=== PATIENT | male | born 1950 | race Caucasian/White ===

== ENCOUNTER 2024-10-27 08:38 | Inpatient (IN) | payer MEDICARE, OTHER ==
[~2024-10-27] VITALS: Ht 175.3 cm; Wt 105.0 kg
[2024-10-27] MEDS ORDERED: Lactated Ringer's 1,000 ML IV ONE ×2 (09:10→12:11)
[2024-10-27 09:28] LABS: BASOPHILS ABSOLUTE AUTO 0.02 K/mm3 (0.00-0.23); BASOPHILS PERCENT AUTO 0 % (0-2); EOSINOPHILS ABSOLUTE AUTO 0.04 K/mm3 (0.00-0.68); EOSINOPHILS PERCENT AUTO 0 % (0-6); Hematocrit 45.5 % (37.0-53.0); Hemoglobin 15.8 g/dL (13.5-17.5); IMMATURE GRAN ABSOLUTE AUTO 0.03 K/mm3 (0.00-0.10); IMMATURE GRAN PERCENT AUTO 0 % (0-1); LYMPHOCYTES ABSOLUTE AUTO 1.06 K/mm3 (0.84-5.20); LYMPHOCYTES PERCENT AUTO 11 % (21-46); MONOCYTES ABSOLUTE AUTO 1.05 K/mm3 (0.16-1.47); MONOCYTES PERCENT AUTO 11 % (4-13); Mean Corpuscular HGB 31.7 pg (26.0-34.0); Mean Corpuscular HGB Conc 34.7 g/dL (31.5-36.5); Mean Corpuscular Volume 91 fL (80-100); Mean Platelet Volume 9.7 fL (9.1-12.4); NEUTROPHILS ABSOLUTE AUTO 7.11 K/mm3 (1.96-9.15); NEUTROPHILS PERCENT AUTO 76 % (41-73); Platelet Count 316 K/mm3 (150-400); RDW Coefficient Variation 13.5 % (11.7-14.2); RDW Standard Deviation 45.7 fL (35.1-46.3); Red Blood Cell Count 4.99 M/mm3 (4.30-5.90); White Blood Cell Count 9.31 K/mm3 (4.00-11.30)
[2024-10-27 09:51] LABS: Albumin, Blood 3.2 g/dL (3.4-5.0); Bilirubin, Total 0.7 mg/dL (0.1-1.0); Bun/Creatinine Ratio 12.7 (12.0-20.0); Calcium, Blood 8.9 mg/dL (8.5-10.1); Creatinine, Blood 2.37 mg/dL (0.60-1.20); Globulin, Blood 3.3 g/dL (2.2-4.0); Magnesium, Blood 2.1 mg/dL (1.6-2.4); Potassium, Blood 4.2 mmol/L (3.5-5.5); Total Protein, Blood 6.5 g/dL (6.4-8.2)
[2024-10-27 12:52] LABS: Source, Urine Clean Catch
[2024-10-27] MEDS ORDERED: FLU VACC TS2024-25(6MOS UP)/PF 45 MCG/0.5 ML SYRINGE IM ONE (13:00)
[2024-10-27] MEDS ORDERED: FentaNYL Citrate 50 MCG/ML 2 ML Injection IV PRN ×2 (13:00→17:00)
[2024-10-27] MEDS ORDERED: Acetaminophen 325 MG TABLET PO PRN (13:00)
[2024-10-27] MEDS ORDERED: NS 1,000 ML IV SCH (13:00)
[2024-10-27] MEDS ORDERED: Ondansetron HCl 2 MG / ML 2ML Vial IV PRN (13:00)
[2024-10-27 13:02] LABS: Appearance, Urine Hazy (Clear); Bilirubin, Urine Neg (Neg); Blood, Urine Neg (Neg); Color, Urine Yellow (P-Yellow); Glucose Qualitative, Urine Neg (Neg); Ketones, Urine 1+ (Neg); Leukocyte Esterase, Urine Neg (Neg); Nitrite, Urine Neg (Neg); Protein, Urine 1+ (Neg); Specific Gravity, Urine 1.015 (1.003-1.022); Urobilinogen, Urine NORM (Normal)
[2024-10-27 13:18] LABS: Calcium Oxalate Crystals Many /hpf
[2024-10-27 13:19] LABS: Red Blood Cells, Urine 0-2 /hpf (0-2)
[2024-10-27 13:20] LABS: Bacteria Mod /hpf; Mucus Light (0-Heavy); Squamous Epithelial Cells Rare /hpf (Few)
[2024-10-27 14:27] VITALS: BP 152/70
[2024-10-27 16:04] LABS: Adenovirus F 40/41 Not Detected (NOT DETECT); Astrovirus Not Detected (NOT DETECT); Campylobacter Sp Not Detected (NOT DETECT); Cryptosporidium Not Detected (NOT DETECT); Cyclospora Cayetanensis Not Detected (NOT DETECT); E. Coli O157 Not Detected (NOT DETECT); Entamoeba Histolytica Not Detected (NOT DETECT); Enteroaggregative E. coli-EAEC Not Detected (NOT DETECT); Enteropathogenic E. coli-EPEC Not Detected (NOT DETECT); Enterotoxigenic E. coli-ETEC Not Detected (NOT DETECT); Giardia Lamblia Not Detected (NOT DETECT); Norovirus GI/GII Not Detected (NOT DETECT); Plesiomonas Shigelloides Not Detected (NOT DETECT); Rotavirus A Not Detected (NOT DETECT); Salmonella Sp Not Detected (NOT DETECT); Sapovirus Not Detected (NOT DETECT); Shiga Toxin-prod E. coli-STEC Not Detected (NOT DETECT); Shigella/Enteroin E. coli-EIEC Not Detected (NOT DETECT); Vibrio Cholerae Not Detected (NOT DETECT); Vibrio Sp Not Detected (NOT DETECT); Yersinia Enterocolitica Not Detected (NOT DETECT)
[2024-10-27] MEDS ORDERED: AMLO10 PO ×2 (17:45)
[2024-10-27] MEDS ORDERED: GABA300 PO ×2 (17:46)
[2024-10-27] MEDS ORDERED: ATOR10 PO ×2 (17:46)
[2024-10-27] MEDS ORDERED: DIPATR PO ×2 (17:47)
[2024-10-27] MEDS ORDERED: Benicar40 MG PO ×2 (17:47)
[2024-10-27] MEDS ORDERED: FISH OIL 1,2001 EAC4 PO ×2 (17:48)
[2024-10-27] MEDS ORDERED: METO50ER PO ×2 (17:48)
[2024-10-27] MEDS ORDERED: ASPI81CH PO ×2 (17:49)
[2024-10-27] MEDS ORDERED: ASCO500 PO ×2 (17:49)
[2024-10-27] MEDS ORDERED: VITAMIN D350 MC3 PO ×2 (17:50)
[2024-10-27] MEDS ORDERED: METAMUCIL POWD798 GM PO ×2 (17:51)
[2024-10-27] MEDS ORDERED: VITAMIN B125000 MC1 PO ×2 (17:52)
--- NOTE | 2024-10-27 19:14 | NUR ---
ADMISSION: REPORT RECEIVED FROM ED RN. PT A/O UPON UNIT ARRIVAL, VSS. PT REPORTS RECTAL PAIN, MEDICATED PER EMAR. FLUIDS STARTED. DR. RODRIGUEZ IN ROOM AT ABOUT 1700. ADMISSION CHARTING COMPLETED, DR. REDDY TO SEE PT ON 10/28. PT CALL LIGHT IN REACH. NO ACUTE CONCERNS.
[2024-10-27 19:36] VITALS: BP 116/67
--- NOTE | 2024-10-28 04:30 | NUR ---
SHIFT SUMMARY PT RESTED FOR MOST OF SHIFT. NPO AT NC FOR CONSULT WITH SURGERY AND POSSIBLE PROCEDURE. PAIN MANAGED PER EMAR. PT IND IN THE ROOM, VOIDING AND HAVING BM'S. PT HAVING DIARRHEA STILL. PT HAS FLUIDS RUNNING PER EMAR. VSS. NO OTHER CONCERNS AT THIS TIME, CALL LIGHT WITHIN REACH
[2024-10-28 04:39] VITALS: BP 121/66
[2024-10-28 04:59] LABS: Mean Corpuscular HGB 31.7 pg (26.0-34.0); Mean Corpuscular Volume 91 fL (80-100); Mean Platelet Volume 9.6 fL (9.1-12.4); Platelet Count 267 K/mm3 (150-400); RDW Coefficient Variation 13.3 % (11.7-14.2); RDW Standard Deviation 44.6 fL (35.1-46.3); Red Blood Cell Count 4.42 M/mm3 (4.30-5.90); White Blood Cell Count 6.34 K/mm3 (4.00-11.30)
[2024-10-28 06:02] LABS: Bun/Creatinine Ratio 12.7 (12.0-20.0); Calcium, Blood 8.2 mg/dL (8.5-10.1); Creatinine, Blood 2.29 mg/dL (0.60-1.20); Potassium, Blood 3.6 mmol/L (3.5-5.5)
[2024-10-28 07:09] VITALS: BP 107/68
[2024-10-28] MEDS ORDERED: Loperamide HCl 2 MG Cap PO PRN (08:15)
[2024-10-28] MEDS ORDERED: NS 1,000 ML IV SCH (08:20)
--- NOTE | 2024-10-28 08:59 | NUR ---
DR RODRIGUEZ IN TO SEE PT.
[2024-10-28] MEDS ORDERED: Enoxaparin 40 MG/0.4 ML SYR SC SCH (09:00)
[2024-10-28] MEDS ORDERED: Dextrose 5% 1,000 ML IV SCH (10:55)
--- NOTE | 2024-10-28 11:02 | NUR ---
DR REDDY IN TO SEE PT.
[2024-10-28] MEDS ORDERED: OxyCODONE 5 mg/Acetamin 325 mg TABLET PO PRN (11:55)
[2024-10-28] MEDS ORDERED: Sodium Bicarb 8.4% Inj 150 MEQ in Dextrose 5% 1,000 ML IV SCH (12:05)
[2024-10-28] MEDS ORDERED: Lidocaine HCl 2% Jelly 120MG/6ML SYR (20MG PER ML) TOP PRN (12:40)
[2024-10-28 13:38] LABS: Free Thyroxine 0.99 ng/dL (0.70-1.60); Percent Saturation 11.5 % (20.0-50.0); Thyroid Stimulating Hormone 1.64 uIU/mL (0.360-4.800)
[2024-10-28 14:01] VITALS: BP 122/71
[2024-10-28] MEDS ORDERED: Cholestyramine 4 GM PKT PO PRN ×2 (16:10→16:20)
--- NOTE | 2024-10-28 18:10 | NUR ---
SUMMARY NO ACUTE CHANGES T/O SHIFT. PT HAS NOT HAD BM SINCE MIDDAY. STOOL SAMPLE ORDERED. COLLECTION HAT IN TOILET. PT REPORTS PAIN TOLERABLE AT THIS TIME, RATING 1/10 AFTER TWO PERCOCET PER ORDERS. IV FLUIDS INFUSING PER ORDERS. CALL LIGHT IN REACH. INDEPENDENT IN ROOM.
[2024-10-28] MEDS ORDERED: Nitroglycerin 1 INCH/GM PKT TOP SCH (21:00)
[2024-10-28 21:14] VITALS: BP 107/93
--- NOTE | 2024-10-29 04:25 | NUR ---
SHIFT SUMMARY PT SLEPT FOR MOST OF NIGHT. PAIN MANAGED PER EMAR. TOLERATING PO INTAKE. VOIDING. FLUIDS RUNNING PER EMAR. PT IND IN THE ROOM. PT HAD ONE SMALL BM TONIGHT. PASSING GAS. VSS. NO OTHER CONCERNS AT THIS TIME, CALL LIGHT WITHIN REACH
[2024-10-29 04:56] VITALS: BP 122/68
[2024-10-29 05:04] LABS: Hematocrit 41.4 % (37.0-53.0); Hemoglobin 14.5 g/dL (13.5-17.5)
[2024-10-29 05:24] LABS: Albumin, Blood 2.8 g/dL (3.4-5.0); Anion Gap 11 mmol/L (3-11); Blood Urea Nitrogen 24 mg/dL (8-24); Bun/Creatinine Ratio 11.8 (12.0-20.0); CO2, Blood 20 mmol/L (21-32); Calcium, Blood 8.2 mg/dL (8.5-10.1); Chloride, Blood 113 mmol/L (98-108); Creatinine, Blood 2.04 mg/dL (0.60-1.20); Glomerular Filtration Rate 33 (60-); Glucose, Blood 94 mg/dL (70-99); Phosphorus, Blood 3.3 mg/dL (2.5-4.9); Potassium, Blood 3.5 mmol/L (3.5-5.5); Sodium, Blood 140 mmol/L (136-145)
[2024-10-29 07:00] VITALS: BP 116/67
[2024-10-29] MEDS ORDERED: AmLODIPine Besylate 5 MG Tab PO SCH (09:10)
[2024-10-29] MEDS ORDERED: Gabapentin 300 MG Cap PO SCH ×3 (10:00→21:00)
[2024-10-29 14:15] VITALS: BP 133/76
--- NOTE | 2024-10-29 17:14 | NUR ---
SUMMARY NO ACUTE CHANGES T/O SHIFT. VSS. PT INDEPENDENT IN ROOM. HAD MULTIPLE BMS T/O SHIFT, LAST BM LARGE, LOOSE, GREEN, OILY. MEDICATED PER ORDERS W/QUESTRAN. PT'S PAIN TOLERABLE T/O SHIFT W/PERCOCET PER ORDERS. TOLERATING FULL LIQUID DIET; NO REPORTS OF N/V. PLAN FOR CLEAR LIQUIDS TOMORROW AND BOWEL PREP IN AFTERNOON IN PREPARATION FOR SCOPE ON FRIDAY. MULTIPLE FAMILY MEMBERS IN ROOM W/PT AT THIS TIME, PT DENIES ANY NEEDS PRESENTLY. CALL LIGHT IN REACH.
[2024-10-29 19:55] VITALS: BP 131/77
[2024-10-29] MEDS ORDERED: Metoprolol Succinate 50 MG TABCR PO SCH (21:00)
[2024-10-30 04:22] VITALS: BP 147/80
--- NOTE | 2024-10-30 04:47 | NUR ---
SHIFT SUMMARY PT ABLE TO SLEEP FOR MOST OF NIGHT. PAIN MANAGED PER EMAR. TOLERATING FULL LIQUIDS. PT HAVING SMALL AMOUNT BOWEL MOVEMENTS, STILL LIQUID AND GREEN. PLAN TO START BOWEL PREP TODAY FOR SCOPE TOMORROW. VSS. NO OTHER CONCERNS AT THIS TIME, CALL LIGHT WITHIN REACH
[2024-10-30 04:51] LABS: Hematocrit 39.4 % (37.0-53.0); Hemoglobin 14.2 g/dL (13.5-17.5)
[2024-10-30 05:07] LABS: Albumin, Blood 2.7 g/dL (3.4-5.0); Anion Gap 10 mmol/L (3-11); Blood Urea Nitrogen 17 mg/dL (8-24); Bun/Creatinine Ratio 9.4 (12.0-20.0); CO2, Blood 24 mmol/L (21-32); Calcium, Blood 8.4 mg/dL (8.5-10.1); Chloride, Blood 109 mmol/L (98-108); Glomerular Filtration Rate 39 (60-); Glucose, Blood 109 mg/dL (70-99); Magnesium, Blood 2.1 mg/dL (1.6-2.4); Phosphorus, Blood 2.9 mg/dL (2.5-4.9); Potassium, Blood 3.4 mmol/L (3.5-5.5); Sodium, Blood 140 mmol/L (136-145)
[2024-10-30] MEDS ORDERED: Potassium Chloride 20 MEQ TabCR PO ONE (06:10)
[2024-10-30 07:51] VITALS: BP 133/80
[2024-10-30 14:55] VITALS: BP 143/77
[2024-10-30] MEDS ORDERED: Sodium, Potassium,Mag Sulfates 354 ML PO SCH (16:00)
--- NOTE | 2024-10-30 16:57 | NUR ---
PT A/OX4 ABLE TO MAKE HIS NEEDS KNONW. VSS, ON RA WITH NO COMPLAINTS OF SOB. HE CONTINUES TO HAVE LOOSE STOOLS. PT IND IN ROOM WITH ADLS. BOWEL PREP STARTED AT 1600 FOR COLONOSCOPY IN AM PER DR. REDDY. CALL LIGHT IN REACH
[2024-10-30] MEDS ORDERED: NS 1,000 ML IV SCH (19:40)
[2024-10-30 19:44] VITALS: BP 140/84
[2024-10-31] VITALS (12 sets, daily range): BP systolic 111–164; BP diastolic 63–88
[2024-10-31 04:43] LABS: Hematocrit 42.1 % (37.0-53.0); Hemoglobin 14.7 g/dL (13.5-17.5)
[2024-10-31 05:04] LABS: Albumin, Blood 2.8 g/dL (3.4-5.0); Anion Gap 11 mmol/L (3-11); Blood Urea Nitrogen 11 mg/dL (8-24); Bun/Creatinine Ratio 6.7 (12.0-20.0); CO2, Blood 24 mmol/L (21-32); Calcium, Blood 8.8 mg/dL (8.5-10.1); Chloride, Blood 111 mmol/L (98-108); Creatinine, Blood 1.64 mg/dL (0.60-1.20); Glomerular Filtration Rate 43 (60-); Glucose, Blood 105 mg/dL (70-99); Magnesium, Blood 2.2 mg/dL (1.6-2.4); Phosphorus, Blood 2.4 mg/dL (2.5-4.9); Potassium, Blood 3.7 mmol/L (3.5-5.5); Sodium, Blood 142 mmol/L (136-145)
--- NOTE | 2024-10-31 06:24 | NUR ---
SHIFT SUMMARY NOC. PT A/O X4. ADMIT FOR GRANT AND DIARRHEA. PT TO HAVE A LOWER SCOPE TODAY, PT NPO SINCE 0000 ASIDE FROM SCHEDULED 0400 BOWEL PREP. PT VOIDING URINE, HAVING BOWEL MOVEMENTS, AND PASSING GAS. PT MEDICATED FOR PAIN X1 WITH REPORTED RELIEF. CALL LIGHT IN REACH, PT MAKES NEEDS KNOWN.
[2024-10-31] MEDS ORDERED: Lidocaine HCl 2% Jelly 120MG/6ML SYR (20MG PER ML) TOP ONE (07:35)
[2024-10-31] MEDS ORDERED: Sodium, Potassium,Mag Sulfates 354 ML PO ONE (07:45)
[2024-10-31] MEDS ORDERED: NS 500 ML IV SCH (14:45)
--- NOTE | 2024-10-31 16:52 | NUR ---
10/31/24 1652 Alissa Gardiner History, Chart, Medications and Allergies reviewed before start of procedure.PRE OP TEACING DONE. DR CARLTON PROVIDING ANESTHESIA SEE RECORDS
[2024-10-31] MEDS ORDERED: Sodium Phosphate Mono/Dibasic 250 MG Tab PO SCH (17:00)
[2024-10-31] MEDS ORDERED: propofoL 60 ML IV ONE (17:24)
[2024-10-31] MEDS ORDERED: propofoL 20 ML IV ONE (17:46)
[2024-10-31] MEDS ORDERED: propofoL 40 ML IV ONE (18:09)
--- NOTE | 2024-10-31 19:36 | NUR ---
SHIFT SUMMARY SURPREP COMPLETED AFTER GIVING ONE ADDITIONAL BOTTLE TO FURTHER CLEAR UP HIS STOOL, COLONOSCOPY PERFORMED LATE IN THE SHIFT AND HE WAS BROUGHT BACK OUT TO HIS ROOM JUST BEFORE END OF SHIFT BUT DURING SHIFT CHANGE, PAINFUL BUT WAS MEDICATED PER EMAR. FAMILY AT BEDSIDE, POST OP VITALS STARTED. CALL LIGHT IN REACH.
[2024-10-31] MEDS ORDERED: DiphenhydrAMINE HCl 50 MG Cap PO ONE (21:30)
[2024-10-31] MEDS ORDERED: FentaNYL Citrate 50 MCG/ML 2 ML Injection IV PRN (21:30)
[2024-10-31] MEDS ORDERED: Ketamine HCl 100 MG / ML 5ML Vial XX ONE (21:58)
[2024-11-01 04:40] LABS: Hematocrit 36.4 % (37.0-53.0); Hemoglobin 12.7 g/dL (13.5-17.5)
[2024-11-01 04:46] VITALS: BP 136/73
[2024-11-01 05:01] LABS: Albumin, Blood 2.3 g/dL (3.4-5.0); Anion Gap 10 mmol/L (3-11); Blood Urea Nitrogen 12 mg/dL (8-24); Bun/Creatinine Ratio 8.5 (12.0-20.0); CO2, Blood 24 mmol/L (21-32); Calcium, Blood 8.1 mg/dL (8.5-10.1); Chloride, Blood 112 mmol/L (98-108); Creatinine, Blood 1.41 mg/dL (0.60-1.20); Glomerular Filtration Rate 52 (60-); Glucose, Blood 90 mg/dL (70-99); Magnesium, Blood 2.1 mg/dL (1.6-2.4); Phosphorus, Blood 3.1 mg/dL (2.5-4.9); Potassium, Blood 3.4 mmol/L (3.5-5.5); Sodium, Blood 143 mmol/L (136-145)
[2024-11-01] MEDS ORDERED: Potassium Chloride 20 MEQ TabCR PO ONE (06:30)
[2024-11-01 07:32] VITALS: BP 114/63
--- NOTE | 2024-11-01 07:38 | NUR ---
SHIFT SUMMARY NOC. PT POD 1 FOR COLONOSCOPY PROCEDURE. PT ARRIVED BACK TO FLOOR POST PROCEDURE AT SHIFT CHANGE AND REPORTED 10/10 PAIN. PAIN MANAGEMENT DIFFICULT WITH IV FENT AND ORAL PERCOCET. CALL PLACED TO HOSPITALIST REGARDING PAIN AND NEW ONSET RED RASH ON BACK AND TRUNK OF ABDOMEN. NEW ORDERS RECEIVED FOR BENADRYL X1 NOW AND CHANGE FENT FROM Q4 TO Q2 HOURS PRN. NOTIFIED DR. REDDY OF UNCONTROLLED PAIN WELL. PT'S PAIN BETTER CONTROLLED AFTER MEDICATION CHANGE AND BENADRYL. MAKES NEEDS KNOWN AND CALL LIGHT IN REACH. PAIN 1/10 AT LAST CARE ROUND.
[2024-11-01] MEDS ORDERED: Gabapentin 300 MG Cap PO SCH (09:00)
[2024-11-01] MEDS ORDERED: Percocet 5-3251 EACH PO ×2 (11:59)
[2024-11-01 13:01] VITALS: BP 130/71
--- NOTE | 2024-11-01 14:54 | NUR ---
DISCHARGE PT PROVIDED WITH WRITTEN AND VERBAL DISCHARGE INSTRUCTIONS, PT VERBALIZED UNDERSTANDING. PT EDUCATED TO FOLLOW-UP WITH DR. REDDY AND DR. MIRZA INSTRUCTED. PT ENCOURAGED TO MONITOR URINARY OUTPUT AND COLOR WELL HYDRATE. PT EDUCATED TO FOLLOW-UP WITH HIS PCP WHEN HE RETURNS HOME AND TO NOTIFY DR. REDDY/DR. MIRZA OF ANY CHANGES WHILE HE REMAINS AWAY FROM HOME. PAIN MANAGED AT TIME OF DISCHARGE. VSS. PT ASSISTED OUT IN W/C AT APPROXIMATELY 1355.
[2024-11-01 19:19] LABS: LACTOFERRIN,FECAL BY ELISA Positive (Negative)
[2024-11-01 22:05] LABS: TISSUE TRANSGLUTAMINAS TTG,IGA 1.37 FLU (0.00-4.99)
[2024-11-02] MEDS ORDERED: Metoprolol Succinate 25 MG TABCR PO SCH (09:00)
[2024-11-03 20:46] LABS: CALPROTECTIN,FECAL 421 ug/g (<=49); PANCREATIC ELASTASE,FECAL 75 ug/g (>=100)
== END 2024-11-01 13:55 | disposition home or self-care (01) | DRG 683 ==
LOC: ER 08:38 → MEDS 08:39 → SURS 08:39
PROVIDERS: Internal Medicine Nephrology; Physician Assistant; Surgery; ADMIT Internal Medicine
PROC: 5A09357 Assistance with Respiratory Ventilation, Less than 24 Consecutive Hours, Continuous Positive Airway Pressure (ICD-10-PCS; 2024-10-28)
PROC: 0DBL8ZX Excision of Transverse Colon, Via Natural or Artificial Opening Endoscopic, Diagnostic (ICD-10-PCS; 2024-10-31)
PROC: 0DBP8ZX Excision of Rectum, Via Natural or Artificial Opening Endoscopic, Diagnostic (ICD-10-PCS; 2024-10-31)
PROC: 0DBB8ZX Excision of Ileum, Via Natural or Artificial Opening Endoscopic, Diagnostic (ICD-10-PCS; 2024-10-31)
PROC: 0DBM8ZX Excision of Descending Colon, Via Natural or Artificial Opening Endoscopic, Diagnostic (ICD-10-PCS; 2024-10-31)
PROC: 0DBK8ZX Excision of Ascending Colon, Via Natural or Artificial Opening Endoscopic, Diagnostic (ICD-10-PCS; principal; 2024-10-31 14:00)
DX: N17.0 Acute kidney failure with tubular necrosis (principal); E87.20 Acidosis, unspecified; K52.9 Noninfective gastroenteritis and colitis, unspecified; K60.0 Acute anal fissure; G89.29 Other chronic pain; E88.09 Other disorders of plasma-protein metabolism, not elsewhere classified; G47.33 Obstructive sleep apnea (adult) (pediatric); I12.9 Hypertensive chronic kidney disease with stage 1 through stage 4 chronic kidney disease, or unspecified chronic kidney disease; N18.30 Chronic kidney disease, stage 3 unspecified; E66.9 Obesity, unspecified; D50.9 Iron deficiency anemia, unspecified; D63.1 Anemia in chronic kidney disease; E78.00 Pure hypercholesterolemia, unspecified; K62.89 Other specified diseases of anus and rectum; M48.02 Spinal stenosis, cervical region; G62.9 Polyneuropathy, unspecified; Z98.890 Other specified postprocedural states; Z79.82 Long term (current) use of aspirin; Z79.899 Other long term (current) drug therapy; E87.6 Hypokalemia; Z68.32 Body mass index [BMI] 32.0-32.9, adult
CPT/HCPCS: 36415; 51798; 74177; 80048; 80053; 80069; 81001; 82653; 82728; 83540; 83550; 83630; 83735; 83993; 84439; 84443; 85014; 85018; 85025; 85027; 85651; 86140; 86364; 87086; 87507; 88305; 94762; 96360; 96361; 96365; 96366; 96375; 96376; 99285-25; A9270; G0378; J1650; J2704; J3010; J7030; J7040; J7070; J7120; Q9967

== ENCOUNTER 2024-11-02 08:17 | Emergency (ER) | payer MEDICARE, OTHER ==
[~2024-11-02] VITALS: Ht 175.3 cm; Wt 104.3 kg
[~2024-11-02 08:17] MED LIST: AMLO10 PO; ASCO500 PO; ASPI81CH PO; ATOR10 PO; Benicar40 MG PO; DIPATR PO; FISH OIL 1,2001 EAC4 PO; GABA300 PO; METAMUCIL POWD798 GM PO; METO50ER PO; Percocet 5-3251 EACH PO; VITAMIN B125000 MC1 PO; VITAMIN D350 MC3 PO
[2024-11-02] MEDS ORDERED: HYDROcodone 10-APAP 325 TAB PO ONE (09:15)
== END 2024-11-02 11:37 | disposition home or self-care (01) ==
LOC: ER 08:17
DX: M54.32 Sciatica, left side (principal); I10 Essential (primary) hypertension; Z79.82 Long term (current) use of aspirin; Z79.899 Other long term (current) drug therapy
CPT/HCPCS: 73502; 99283-25; A9270

== ENCOUNTER 2024-11-05 10:28 | Day surgery (SDC) | payer MEDICARE, OTHER ==
[~2024-11-05] VITALS: Ht 175.3 cm; Wt 104.7 kg
[~2024-11-05 10:28] MED LIST changes: +Botulinum Toxin Type A 100 U Vial IM ONE; +NS 500 ML IV ONE
[2024-11-05] MEDS ORDERED: NS 500 ML IV ONE (11:09)
[2024-11-05] MEDS ORDERED: propofoL 20 ML IV ONE ×2 (11:20→12:00)
[2024-11-05] MEDS ORDERED: FentaNYL Citrate 50 MCG/ML 2 ML Injection ONE (11:20)
[2024-11-05] MEDS ORDERED: Dexamethasone Sod Phos 10 MG/ML 1ML VIAL ONE (12:02)
[2024-11-05] MEDS ORDERED: Ondansetron HCl 2 MG / ML 2ML Vial ONE (12:02)
[2024-11-05] MEDS ORDERED: Bupivacaine 0.5% HCl 5 MG/ML 30MLVIAL INJ ONE (12:12)
[2024-11-05] MEDS ORDERED: Botulinum Toxin Type A 100 U Vial SC ONE (12:13)
== END 2024-11-05 13:38 | disposition home or self-care (01) ==
LOC: ORSCSDS 10:28 → ORD 11:45 → ORSCSDS 11:45
PROVIDERS: Surgery
PROC: 3E0H7GC Introduction of Other Therapeutic Substance into Lower GI, Via Natural or Artificial Opening (ICD-10-PCS; principal; 2024-11-05 11:45)
DX: K60.0 Acute anal fissure (principal); R19.7 Diarrhea, unspecified; I10 Essential (primary) hypertension; G47.33 Obstructive sleep apnea (adult) (pediatric); E66.9 Obesity, unspecified; Z68.34 Body mass index [BMI] 34.0-34.9, adult; Z79.899 Other long term (current) drug therapy
CPT/HCPCS: J0585; J1100; J2405; J2704; J3010; J7040

== ENCOUNTER → 2024-11-11 | Outpatient (CLI) | payer MEDICARE, OTHER ==
[~2024-11-11] MED LIST changes: -Botulinum Toxin Type A 100 U Vial IM ONE; -NS 500 ML IV ONE
[2024-11-11 13:31] LABS: Protein, Urine Quantitative 6.4 mg/dL (0.0-11.9)
[2024-11-11 13:40] LABS: Microalbumin, Urine Quant. <5.000 mg/L (0.000-20.000)
== END ==
LOC: LAB 09:06 → LAB SHORT 09:06
PROVIDERS: Internal Medicine Nephrology
DX: N18.30 Chronic kidney disease, stage 3 unspecified (principal); N25.81 Secondary hyperparathyroidism of renal origin; E55.9 Vitamin D deficiency, unspecified; R76.9 Abnormal immunological finding in serum, unspecified; R94.5 Abnormal results of liver function studies; R94.6 Abnormal results of thyroid function studies; D50.9 Iron deficiency anemia, unspecified; D51.8 Other vitamin B12 deficiency anemias
CPT/HCPCS: 81050; 82043; 82570; 84156